=== PATIENT | male | born 1945 | race Caucasian/White ===

== ENCOUNTER 2017-10-18 08:42 | Outpatient (CLI) | payer MEDICARE, MEDICAID | END 2017-10-18 08:43 | disposition home or self-care (01) | LOC: BICMAMMO 08:42 | PROVIDERS: ATTEND Specialist | DX: M81.0 Age-related osteoporosis without current pathological fracture (principal) | CPT/HCPCS: 77080 ==

== ENCOUNTER 2019-01-30 07:55 | Outpatient (CLI) | payer MEDICARE, MEDICAID ==
--- NOTE | 2019-01-30 11:00 | BD ---
DEXA BONE DENSITY STUDY: HISTORY: Osteoporosis. COMPARISON: 10/18/2017 LUMBAR SPINE MEAN BMD (g/cm2) T-SCORE L1 0.746 -3.0 L2 0.845 -2.3 L3 0.851 -2.3 L4 0.807 -2.6 TOTAL 0.814 -2.5 Evidence for osteoporosis with high risk for fracture. Little change from prior study. LEFT HIP MEAN BMD (g/cm2) T-SCORE FEMORAL NECK 0.495 -3.2 TOTAL 0.681 -2.3 Evidence for osteoporosis with high risk for fracture. Overall bone mineral density has improved slightly when compared to prior study, at which time the T- score was -3.3, compared to -3.2 on today's study. POS: [facility]
== END 2019-01-30 07:56 | disposition home or self-care (01) ==
LOC: BICMAMMO 07:55
PROVIDERS: ATTEND Specialist
DX: M81.8 Other osteoporosis without current pathological fracture (principal)
CPT/HCPCS: 77080

== ENCOUNTER 2021-10-31 11:16 | Outpatient (CLI) | payer MEDICARE, MEDICAID | END 2021-10-31 11:17 | disposition home or self-care (01) | LOC: CT 11:16 | PROVIDERS: ATTEND Specialist | DX: R06.00 Dyspnea, unspecified (principal); R59.0 Localized enlarged lymph nodes | CPT/HCPCS: 71250 ==